=== PATIENT | male | born 1950 | race Two or more races ===

== ENCOUNTER 2017-09-29 09:06 | Outpatient (CLI) | payer OTHER | END 2017-09-29 09:13 | disposition home or self-care (01) | LOC: SONOGRAMA 09:06 | DX: M25.512 Pain in left shoulder (principal) ==

== ENCOUNTER 2017-12-07 09:28 | Outpatient (CLI) | payer OTHER | END 2017-12-07 14:48 | disposition home or self-care (01) | LOC: SONOGRAMA 09:28 | DX: M25.511 Pain in right shoulder (principal) ==

== ENCOUNTER 2018-02-22 11:43 | Outpatient (CLI) | payer OTHER | END 2018-02-22 11:49 | disposition home or self-care (01) | LOC: RAD 11:43 | DX: M62.830 Muscle spasm of back (principal) ==

== ENCOUNTER 2019-06-11 07:36 | Outpatient (CLI) | payer OTHER | END 2019-06-11 07:42 | disposition home or self-care (01) | LOC: RAD 07:36 | DX: M54.2 Cervicalgia (principal) ==

== ENCOUNTER 2021-08-10 14:55 | Outpatient (CLI) | payer OTHER | END 2021-08-10 15:10 | disposition home or self-care (01) | LOC: PPH VACUNA 14:55 | PROVIDERS: ATTEND Emergency Medicine Pediatric Emergency Medicine | DX: Z23 Encounter for immunization (principal) ==

== ENCOUNTER 2022-08-17 14:07 | Emergency (ER) | payer OTHER ==
[~2022-08-17] VITALS: Ht 172.7 cm; Wt 82.6 kg
== END 2022-08-17 19:50 | disposition home or self-care (01) ==
LOC: ER 14:07
DX: S69.92XA Unspecified injury of left wrist, hand and finger(s), initial encounter (principal); W40.9XXA Explosion of unspecified explosive materials, initial encounter; Y93.9 Activity, unspecified; Y92.9 Unspecified place or not applicable; I10 Essential (primary) hypertension

== ENCOUNTER 2022-11-16 06:56 | Emergency (ER) | payer OTHER ==
[~2022-11-16] VITALS: Ht 172.7 cm; Wt 83.9 kg
[2022-11-16] MEDS ORDERED: LEVOTHYROXINE25 MC1 (07:09)
[2022-11-16] MEDS ORDERED: AMLODIPINE BESYL5 MG (07:09)
[2022-11-16] MEDS ORDERED: SIMVASTATIN40 MG (07:10)
[2022-11-16] MEDS ORDERED: DICLOFENAC POTA50 MG PO (15:24)
== END 2022-11-16 15:32 | disposition home or self-care (01) ==
LOC: ER 06:56
DX: M79.662 Pain in left lower leg (principal); Z86.72 Personal history of thrombophlebitis